=== PATIENT | male | born 1985 | race African-American/Black ===

== ENCOUNTER → 2017-11-23 | Outpatient (CLI) | payer OTHER ==
[~2017-11-23] MED LIST: ACETAMINOPHEN-1 EAC1 PO; AMOXICILLIN 50500 MG PO; ASPIRIN81 M2; ATIVAN1 MG PO; AZITHROMYCIN 2250 MG PO; BENZONATATE200 MG; CEPHALEXIN 500500 M1; GEMFIBROZIL 60600 MG PO; GLUCOPHAGE1000 MG; GLUCOTROL5 MG PO; GLYBURIDE 2.52.5 MG PO; HYDROCHLOROTH12.5 M1 PO; LIPITOR 20 MG T20 M1; LISINOPRIL20 MG PO; LOPRESSOR25 PO; LOPRESSOR50; LORTABELXR PO; MEDROLDOSEPACK PO; OMEPRAZOLE40 MG; PHENERGAN-CODE120 ML PO; PREDNISONE50 MG PO; PROAIR HFA8.5 GM INH; PROMETHAZINE D480 ML PO; PROVENTIL17 G1 IH; THERAFLU COLD; TRICOR145 MG; VENTOLIN17 GM INH; ZESTORETIC 20-1 EAC1; ZPAK PO
--- NOTE | 2017-11-23 16:38 | 2DMMODE ---
[place] [address] 2 D/M-MODE ECHOCARDIOGRAM Name: MIKIE HOWELL Room: [facility]#: [id number] Admission: 11/23/17 Attend Phys: Wily Lemos, Discharge: Date of : 83 Date of Service: 11/23/17 1638 Report #: [id number] THIS REPORT FOR: //name// APPROVED REPORT Study performed: 11/23/2017 15:00:00 EXAM: Comprehensive 2D, Doppler, and color-flow Echocardiogram Patient Location: Out-Patient Status: routine BSA: 2.93 HR: 75 bpm BP: 130/80 mmHg Other Information Study Quality: Good Indications Dyspnea 2D Dimensions IVSd: 11.86 (7-11mm) LVOT Diam: 21.31 (18-24mm) LVDd: 47.03 mm PWd: 11.95 (7-11mm) Ascending Ao: 28.87 (22-36mm) LVDs: 25.98 (25-40mm) Aortic Root: 22.80 mm Volumes Left Atrial Volume (Systole) LA ESV Index: 11.70 mL/m2 Aortic Valve AoV Peak Alfie.: 1.27 m/s AO Peak Gr.: 6.40 mmHg LVOT Max P.90 mmHg AO Mean Gr.: 3.47 mmHg LVOT Mean P.28 mmHg LVOT Max V: 1.11 m/s AO V2 VTI: 24.08 cm LVOT Mean V: 0.68 m/s WATSON (VTI): 3.19 cm2 LVOT V1 VTI: 21.50 cm Mitral Valve E/A Ratio: 1.27 MV Decel. Time: 184.40 ms MV E Max Alfie.: 0.84 m/s MV PHT: 53.48 [place] [address] 2 D/M-MODE ECHOCARDIOGRAM Name: MIKIE HOWELL Room: [facility]#: [id number] Admission: 11/23/17 Attend Phys: Wily Lemos, Discharge: Date of : 83 Date of Service: 11/23/17 1638 Report #: [id number] MVA (PHT): 4.11 cm2 TDI E/Lateral E': 7.00 E/Medial E': 6.00 Medial E' Alfie.: 0.14 m/s Lateral E' Alfie.: 0.12 m/s Pulmonary Valve PV Peak Alfie.: 1.02 m/s PV Peak Gr.: 4.19 mmHg Left Ventricle The left ventricle is normal size. There is normal LV segmental wall motion. There is normal left ventricular wall thickness. Left ventricular systolic function is normal. LVEF is 55-60%. The left ventricular diastolic function is normal. Right Ventricle The right ventricle is normal size. The right ventricular systolic function is normal. Atria The left atrium size is normal. The right atrium size is normal. Aortic Valve The aortic valve is normal in structure. No aortic regurgitation is present. There is no aortic valvular stenosis. Mitral Valve The mitral valve is normal in structure. There is no mitral valve regurgitation noted. No evidence of mitral valve stenosis. Tricuspid Valve The tricuspid valve is normal in structure. There is no tricuspid valve regurgitation noted. Pulmonic Valve The pulmonary valve is normal in structure. There is no pulmonic valvular regurgitation. Great Vessels The aortic root is normal in size. IVC is normal in size and collapses >50% with inspiration. Pericardium There [place] [address] 2 D/M-MODE ECHOCARDIOGRAM Name: MIKIE HOWELL [id number] Admission: 11/23/17 Attend Phys: Wily Lemos, Discharge: Date of : 83 Date of Service: 11/23/17 1638 Report #: [id number] <Conclusion> The left ventricle is normal size. There is normal left ventricular wall thickness. Left ventricular systolic function is normal. LVEF is 55-60%. The left ventricular diastolic function is normal. <ELECTRONICALLY SIGNED> By: Wily Lemos MD, FACC 11/23/17 1638 1638 1638 Wily Lemos MD, FACC /INF
== END ==
LOC: M.CRD 14:48
DX: I51.7 Cardiomegaly (principal); R00.2 Palpitations; R06.02 Shortness of breath

== ENCOUNTER 2018-03-22 08:05 | Emergency (ER) | payer OTHER ==
[~2018-03-22] VITALS: Ht 177.8 cm; Wt 208.7 kg
[2018-03-22] MEDS ORDERED: ZOLOFT100 MG PO (08:18)
[2018-03-22 08:39] LABS: ABSOLUTE EOSINOPHILS 0.1 thou/uL (0.0-0.7); ABSOLUTE LYMPHOCYTES 2.1 thou/uL (0.8-5.3); ABSOLUTE MONOCYTES 0.3 thou/uL (0.0-1.2); ABSOLUTE NEUTROPHILS 2.6 thou/uL (1.6-8.1); BASOPHILS 0.6 %; EOSINOPHILS 2.2 %; HEMATOCRIT 44.2 % (42.0-52.0); HEMOGLOBIN 14.9 gm/dL (14.0-18.0); LYMPHOCYTES 40.8 %; MCH 27.3 pg (26.0-34.0); MCHC 33.6 g/dL (28.0-37.0); MCV 81.2 fL (80.0-100.0); MONOCYTES 6.6 %; NUCLEATED RBCS 0 /100WBC; PLATELET COUNT* 219 thou/uL (150-400); POLYS 49.8 %; RBC 5.44 mil/uL (4.50-6.00); RDW-CV 13.6 % (10.5-14.5); WBC 5.3 thou/uL (4.0-11.0)
[2018-03-22 08:46] LABS: ANION GAP 6 mmol/L (7-16); BUN 17 mg/dL (7-18); CALCIUM 8.9 mg/dL (8.5-10.1); CHLORIDE 98 mmol/L (98-107); CO2 28 mmol/L (21-32); CREATININE 1.1 mg/dL (0.6-1.3); GLUCOSE 385 mg/dL (70-99); POTASSIUM 3.9 mmol/L (3.5-5.1); SODIUM 132 mmol/L (136-145)
[2018-03-22 08:58] LABS: ALBUMIN 3.5 g/dL (3.4-5.0); ALKALINE PHOSPHATASE 62 U/L (46-116); LIPASE 173 U/L (73-393); NT-PRO BRAIN NAT PEPTIDE 16 pg/mL (<300); SGOT 10 U/L (15-37); SGPT 35 U/L (30-65); TOTAL BILIRUBIN 0.4 mg/dL (<0.1-1.0); TOTAL PROTEIN 7.2 g/dL (6.4-8.2); TROPONIN-I LEVEL <0.06 ng/mL (<0.06)
[2018-03-22 10:09] VITALS: BP 127/84
--- NOTE | 2018-03-22 15:03 | EKG ---
[place] [address] ELECTROCARDIOGRAM REPORT Name: MIKIE HOWELL [id number] Admission: 03/22/18 Attend Phys: Discharge: 03/22/18 Date of : 83 Report #: [id number] THIS REPORT FOR: //name// [facility] ED Test Date: 2018-03-22 Test Time: 09:02:45 Pat Name: MIKIE HOWELL Department: Room: Gender: M Patient Experience Coordinator: : 1985 Requested By: Billy Chu Order Number: [id number] MD: Farhan Luna Measurements Intervals [place] Rate: 89 P: 41 NC: 148 QRS: 5 QRSD: 91 T: 12 QT: 345 QTc: 420 Interpretive Statements Sinus rhythm Low voltage, precordial leads Compared to ECG 08/22/2016 19:43:25 No significant changes Electronically Signed On 03-22-2018 15:02:58 SUPERVISOR ACCOUNTS RECEIVABLE by Farhan Luna [email or web address] <ELECTRONICALLY SIGNED> By: Farhan Luna MD, [facility] 03/22/18 1502 1 1 Farhan Luna MD, FACC /EPI
== END 2018-03-22 10:10 | disposition home or self-care (01) ==
LOC: M.ERS 08:05
PROVIDERS: Emergency Medicine
DX: E11.65 Type 2 diabetes mellitus with hyperglycemia (principal); R42 Dizziness and giddiness; I10 Essential (primary) hypertension; E78.5 Hyperlipidemia, unspecified; E66.01 Morbid (severe) obesity due to excess calories; Z68.44 Body mass index [BMI] 60.0-69.9, adult; Z87.01 Personal history of pneumonia (recurrent); Z88.1 Allergy status to other antibiotic agents; Z88.8 Allergy status to other drugs, medicaments and biological substances

== ENCOUNTER 2018-08-18 07:24 | Emergency (ER) | payer OTHER ==
[~2018-08-18] VITALS: Ht 177.8 cm; Wt 204.1 kg
[~2018-08-18 07:24] MED LIST changes: +ZOLOFT100 MG PO
[2018-08-18 07:33] VITALS: BP 159/92
[2018-08-18] MEDS ORDERED: GLYBURIDE 2.52.5 MG PO (07:38)
[2018-08-18] MEDS ORDERED: SYNTHROID75 MCG PO (07:39)
[2018-08-18] MEDS ORDERED: HYDRALAZINE 2525 MG PO (07:39)
[2018-08-18] MEDS ORDERED: BACTRIM DS TAB1 EACH PO (07:40)
[2018-08-18] MEDS ORDERED: ULTRAM 50MG TAB50 MG PO (07:41)
[2018-08-19] MEDS ORDERED: CLEOCIN HCL150 MG PO (12:20)
[2018-08-19] MEDS ORDERED: NORCO 5-325 TA1 EAC1 PO (12:22)
[2018-08-21] MEDS ORDERED: NORCO 5-325 TA1 EAC1 PO (05:49)
== END 2018-08-18 07:48 | disposition home or self-care (01) ==
LOC: M.ERS 07:24
DX: L02.11 Cutaneous abscess of neck (principal); I10 Essential (primary) hypertension; E11.9 Type 2 diabetes mellitus without complications; E03.9 Hypothyroidism, unspecified; E78.5 Hyperlipidemia, unspecified; E66.01 Morbid (severe) obesity due to excess calories; Z68.44 Body mass index [BMI] 60.0-69.9, adult; Z87.01 Personal history of pneumonia (recurrent); Z88.1 Allergy status to other antibiotic agents; Z88.8 Allergy status to other drugs, medicaments and biological substances

== ENCOUNTER 2018-08-19 11:17 | Emergency (ER) | payer OTHER ==
[~2018-08-19] VITALS: Ht 177.8 cm; Wt 217.7 kg
[~2018-08-19 11:17] MED LIST changes: +BACTRIM DS TAB1 EACH PO; +HYDRALAZINE 2525 MG PO; +SYNTHROID75 MCG PO; +ULTRAM 50MG TAB50 MG PO
[2018-08-19] MEDS ORDERED: CLEOCIN HCL150 MG PO (12:20)
[2018-08-19] MEDS ORDERED: NORCO 5-325 TA1 EAC1 PO (12:22)
[2018-08-19 12:35] VITALS: BP 160/84
[2018-08-21] MEDS ORDERED: NORCO 5-325 TA1 EAC1 PO (05:49)
== END 2018-08-19 12:36 | disposition home or self-care (01) ==
LOC: M.ERS 11:17
DX: L03.221 Cellulitis of neck (principal); I10 Essential (primary) hypertension; E11.9 Type 2 diabetes mellitus without complications; E03.9 Hypothyroidism, unspecified; E78.5 Hyperlipidemia, unspecified; E66.01 Morbid (severe) obesity due to excess calories; Z87.01 Personal history of pneumonia (recurrent); F17.200 Nicotine dependence, unspecified, uncomplicated; Z88.8 Allergy status to other drugs, medicaments and biological substances

== ENCOUNTER 2018-09-16 09:43 | Emergency (ER) | payer OTHER ==
[~2018-09-16] VITALS: Ht 177.8 cm; Wt 212.7 kg
[~2018-09-16 09:43] MED LIST changes: +CLEOCIN HCL150 MG PO; +NORCO 5-325 TA1 EAC1 PO
[2018-09-16] MEDS ORDERED: GEMFIBROZIL 60600 M1 PO (09:55)
[2018-09-16] MEDS ORDERED: LOPRESSOR50 PO (09:55)
[2018-09-16] MEDS ORDERED: GLIPIZIDE 10 MG10 MG PO (09:55)
[2018-09-16] MEDS ORDERED: ACETAMINOPHEN-1 EAC1 PO (10:19)
[2018-09-16] MEDS ORDERED: IBUPROFEN 800800 MG PO (10:19)
[2018-09-16 10:28] VITALS: BP 132/87
== END 2018-09-16 10:28 | disposition home or self-care (01) ==
LOC: M.ERS 09:43
DX: L02.11 Cutaneous abscess of neck (principal); E66.01 Morbid (severe) obesity due to excess calories; I10 Essential (primary) hypertension; E11.9 Type 2 diabetes mellitus without complications; E78.00 Pure hypercholesterolemia, unspecified; E03.9 Hypothyroidism, unspecified; R22.1 Localized swelling, mass and lump, neck; Z68.44 Body mass index [BMI] 60.0-69.9, adult; Z88.1 Allergy status to other antibiotic agents; Z88.8 Allergy status to other drugs, medicaments and biological substances

== ENCOUNTER 2018-11-01 06:08 | Emergency (ER) | payer OTHER ==
[~2018-11-01] VITALS: Ht 177.8 cm; Wt 210.1 kg
[~2018-11-01 06:08] MED LIST changes: +GEMFIBROZIL 60600 M1 PO; +GLIPIZIDE 10 MG10 MG PO; +IBUPROFEN 800800 MG PO; +LOPRESSOR50 PO
[2018-11-01] MEDS ORDERED: LANTUS100 UNIT/M SUBQ (06:18)
[2018-11-01 07:06] LABS: ABSOLUTE EOSINOPHILS 0.1 thou/uL (0.0-0.7); ABSOLUTE LYMPHOCYTES 1.8 thou/uL (0.8-5.3); ABSOLUTE MONOCYTES 0.4 thou/uL (0.0-1.2); ABSOLUTE NEUTROPHILS 2.7 thou/uL (1.6-8.1); BASOPHILS 0.5 %; HEMATOCRIT 42.3 % (42.0-52.0); LYMPHOCYTES 35.7 %; MCH 27.4 pg (26.0-34.0); MCHC 33.2 g/dL (28.0-37.0); MCV 82.5 fL (80.0-100.0); MONOCYTES 8.6 %; MPV 9.2 fl. (7.2-11.1); NUCLEATED RBCS 0 /100WBC; PLATELET COUNT* 194 thou/uL (150-400); POLYS 53.2 %; RBC 5.13 mil/uL (4.50-6.00); RDW-CV 13.8 % (10.5-14.5)
[2018-11-01 07:14] LABS: ANION GAP 6 mmol/L (7-16); BUN 22 mg/dL (7-18); CHLORIDE 103 mmol/L (98-107); CO2 29 mmol/L (21-32); CREATININE 1.1 mg/dL (0.6-1.3); GLUCOSE 289 mg/dL (70-99); SODIUM 138 mmol/L (136-145)
[2018-11-01 07:23] LABS: ALBUMIN 3.6 g/dL (3.4-5.0); ALKALINE PHOSPHATASE 42 U/L (46-116); SGOT 13 U/L (15-37); SGPT 47 U/L (30-65); TOTAL BILIRUBIN 0.2 mg/dL (<0.1-1.0); TOTAL PROTEIN 6.7 g/dL (6.4-8.2); TROPONIN-I LEVEL <0.06 ng/mL (<0.06)
[2018-11-01] MEDS ORDERED: TRAMADOL 50 MG50 MG PO (07:52)
[2018-11-01 08:20] VITALS: BP 120/77
--- NOTE | 2018-11-01 15:03 | EKG ---
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
== END 2018-11-01 08:21 | disposition home or self-care (01) ==
LOC: M.ERS 06:08
PROVIDERS: Personal Emergency Response Attendant
DX: R51 Headache (principal); E78.5 Hyperlipidemia, unspecified; I10 Essential (primary) hypertension; E11.9 Type 2 diabetes mellitus without complications; E66.01 Morbid (severe) obesity due to excess calories; Z87.01 Personal history of pneumonia (recurrent); Z68.44 Body mass index [BMI] 60.0-69.9, adult; Z76.4 Other boarder to healthcare facility; Z88.1 Allergy status to other antibiotic agents; Z88.8 Allergy status to other drugs, medicaments and biological substances

== ENCOUNTER 2019-02-06 09:39 | Emergency (ER) | payer OTHER ==
[~2019-02-06] VITALS: Ht 177.8 cm; Wt 190.5 kg
[~2019-02-06 09:39] MED LIST changes: +LANTUS100 UNIT/M SUBQ; +TRAMADOL 50 MG50 MG PO
[2019-02-06 09:55] LABS: INFLUENZA A ANTIGEN Negative (Negative)
[2019-02-06] MEDS ORDERED: TAMIFLU75 MG PO (10:19)
[2019-02-06] MEDS ORDERED: PROMETHAZI6.25 MG/5 PO (10:19)
[2019-02-06] MEDS ORDERED: ONDANSETRON HCL4 M3 PO (10:19)
[2019-02-06 10:29] VITALS: BP 141/79
[2019-02-07] MEDS ORDERED: GLYBURIDE 5 MG T5 M1 PO (20:18)
[2019-02-07] MEDS ORDERED: MEDROLDOSEPACK PO (21:16)
[2019-02-07] MEDS ORDERED: VENTOLIN HFA 1818 GM INH (21:17)
== END 2019-02-06 10:30 | disposition home or self-care (01) ==
LOC: M.ERS 09:39
PROVIDERS: Family Medicine
DX: Z87.01 Personal history of pneumonia (recurrent) (principal); J10.1 Influenza due to other identified influenza virus with other respiratory manifestations; E11.9 Type 2 diabetes mellitus without complications; E66.01 Morbid (severe) obesity due to excess calories; I10 Essential (primary) hypertension; E03.9 Hypothyroidism, unspecified; E78.5 Hyperlipidemia, unspecified; Z88.1 Allergy status to other antibiotic agents; Z88.8 Allergy status to other drugs, medicaments and biological substances; Z68.44 Body mass index [BMI] 60.0-69.9, adult; Z79.4 Long term (current) use of insulin

== ENCOUNTER 2019-02-07 20:08 | Emergency (ER) | payer OTHER ==
[~2019-02-07] VITALS: Ht 177.8 cm; Wt 190.5 kg
[~2019-02-07 20:08] MED LIST changes: +ONDANSETRON HCL4 M3 PO; +PROMETHAZI6.25 MG/5 PO; +TAMIFLU75 MG PO
[2019-02-07] MEDS ORDERED: GLYBURIDE 5 MG T5 M1 PO (20:18)
[2019-02-07] MEDS ORDERED: MEDROLDOSEPACK PO (21:16)
[2019-02-07] MEDS ORDERED: VENTOLIN HFA 1818 GM INH (21:17)
[2019-02-07 21:30] VITALS: BP 140/83
--- NOTE | 2019-02-08 14:06 | EKG ---
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: [place] : 1985 Requested By: Karin Dickerson Order Number: [id number] MD: Padilla Rodriguez Measurements Intervals [place] Rate: 106 P: 32 NE: 151 QRS: 16 QRSD: 91 T: 13 QT: 308 QTc: 409 Interpretive Statements Sinus tachycardia Low voltage, precordial leads Compared to ECG 11/01/2018 06:37:47 Sinus rate has increased Electronically Signed On 02-08-2019 14:05:43 STAMP MAKER by Padilla Rodriguez [email or web address] <ELECTRONICALLY SIGNED> By: Padilla Rodriguez MD, [facility] 02/08/19 1405 58 58 Padilla Rodriguez MD, FACC /EPI
== END 2019-02-07 21:30 | disposition home or self-care (01) ==
LOC: M.ERS 20:08
DX: J10.1 Influenza due to other identified influenza virus with other respiratory manifestations (principal); I10 Essential (primary) hypertension; E11.9 Type 2 diabetes mellitus without complications; E03.9 Hypothyroidism, unspecified; E78.5 Hyperlipidemia, unspecified; E66.01 Morbid (severe) obesity due to excess calories; Z79.4 Long term (current) use of insulin; Z88.1 Allergy status to other antibiotic agents; Z88.8 Allergy status to other drugs, medicaments and biological substances

== ENCOUNTER 2020-03-14 19:57 | Emergency (ER) | payer OTHER ==
[~2020-03-14] VITALS: Ht 177.8 cm; Wt 190.5 kg
[~2020-03-14 19:57] MED LIST changes: +GLYBURIDE 5 MG T5 M1 PO; +VENTOLIN HFA 1818 GM INH
[2020-03-14 20:42] LABS: ABSOLUTE EOSINOPHILS 0.1 thou/uL (0.0-0.7); ABSOLUTE LYMPHOCYTES 1.9 thou/uL (0.8-5.3); ABSOLUTE MONOCYTES 0.4 thou/uL (0.0-1.2); ABSOLUTE NEUTROPHILS 3.8 thou/uL (1.6-8.1); BASOPHILS 0.6 %; EOSINOPHILS 1.2 %; HEMATOCRIT 40.3 % (42.0-52.0); HEMOGLOBIN 13.6 gm/dL (14.0-18.0); LYMPHOCYTES 30.1 %; MCH 27.6 pg (26.0-34.0); MCHC 33.7 g/dL (28.0-37.0); MCV 82.1 fL (80.0-100.0); MONOCYTES 6.8 %; MPV 8.4 fl. (7.2-11.1); NUCLEATED RBCS 0 /100WBC; PLATELET COUNT* 234 thou/uL (150-400); POLYS 61.3 %; RBC 4.91 mil/uL (4.50-6.00); RDW-CV 13.7 % (10.5-14.5); WBC 6.2 thou/uL (4.0-11.0)
[2020-03-14 20:55] LABS: PROTIME 10.7 Seconds (9.20-11.50)
[2020-03-14 20:56] LABS: CREATININE 1.2 mg/dL (0.6-1.3)
[2020-03-14 21:01] LABS: ALBUMIN 2.1 g/dL (3.4-5.0); MAGNESIUM 1.8 mg/dL (1.8-2.4); TOTAL BILIRUBIN 0.2 mg/dL (<0.1-1.0); TOTAL PROTEIN 7.4 g/dL (6.4-8.2)
[2020-03-14 21:32] LABS: URINE BILIRUBIN NEGATIVE (Negative); URINE BLOOD NEGATIVE (Negative); URINE CLARITY CLEAR; URINE COLOR YELLOW; URINE GLUCOSE-RANDOM NEGATIVE (Negative); URINE KETONES NEGATIVE (Negative); URINE LEUKOCYTES NEGATIVE (Negative); URINE NITRITE NEGATIVE (Negative); URINE PROTEIN NEGATIVE (Negative); URINE SPECIFIC GRAVITY <= 1.005 (1.005-1.030); URINE UROBILINOGEN 0.2 E.U./dl (0.2-1.0)
[2020-03-14 21:58] VITALS: BP 121/70
--- NOTE | 2020-03-15 14:38 | EKG ---
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: ANWAF : 1985 Requested By: Jeanne Davila Order Number: [id number] MD: Farhan Luna Measurements Intervals [place] Rate: 83 P: 52 WI: 156 QRS: 24 QRSD: 90 T: 14 QT: 383 QTc: 450 Interpretive Statements Sinus rhythm artifact noted Low voltage, precordial leads Compared to ECG 02/07/2019 20:59:04 Sinus tachycardia no longer present Electronically Signed On 03-15-2020 14:37:52 PACKAGE SEALER MACHINE by Farhan Luna [email or web address] <ELECTRONICALLY SIGNED> By: Farhan Luna MD, [facility] 03/15/20 1437 28 28 Farhan Luna MD, [facility] /EPI
== END 2020-03-14 21:59 | disposition home or self-care (01) ==
LOC: M.ERS 19:57
PROVIDERS: Emergency Medicine
DX: R20.2 Paresthesia of skin (principal); I10 Essential (primary) hypertension; E11.9 Type 2 diabetes mellitus without complications; E03.9 Hypothyroidism, unspecified; E78.5 Hyperlipidemia, unspecified; Z79.899 Other long term (current) drug therapy; Z79.4 Long term (current) use of insulin; Z88.8 Allergy status to other drugs, medicaments and biological substances